=== PATIENT | male | born 1955 | race Caucasian/White ===

== ENCOUNTER 2017-02-06 13:48 | Day surgery (SDC) | payer BC ==
[~2017-02-06] VITALS: Ht 172.7 cm; Wt 105.6 kg
[2017-02-06 14:10] VITALS: BP 126/79; PULSE 65; TEMP 98.3
[2017-02-06] MEDS ORDERED: LOTREL 5/20 CAP1 CAP PO (14:51)
[2017-02-06] MEDS ORDERED: ZYLOPRIM 300MG300 MG PO (14:52)
[2017-02-06] MEDS ORDERED: HYGROTON50 MG PO (14:52)
[2017-02-06] MEDS ORDERED: ALEVE 220MG220 MG PO (14:53)
[2017-02-06 15:49] VITALS: BP 126/79; PULSE 69
[2017-02-06 16:04] VITALS: BP 105/70; PULSE 57
[2017-02-06 16:19] VITALS: BP 113/72; PULSE 61
== END 2017-02-06 16:30 | disposition home or self-care (01) ==
LOC: SDCO 13:48
DX: Z12.11 Encounter for screening for malignant neoplasm of colon (principal); K63.5 Polyp of colon; K62.1 Rectal polyp; K57.30 Diverticulosis of large intestine without perforation or abscess without bleeding; I10 Essential (primary) hypertension; M10.9 Gout, unspecified
CPT/HCPCS: OP; J2250; J3010; J7030

== ENCOUNTER 2020-02-16 14:09 | Day surgery (SDC) | payer BC ==
[~2020-02-16] VITALS: Ht 170.2 cm; Wt 102.0 kg
[2020-02-16] VITALS (7 sets, daily range): BP systolic 109–126; BP diastolic 61–96; PULSE 44–58; TEMP 98.7
[~2020-02-16 14:09] MED LIST: ALEVE 220MG220 MG PO; HYGROTON50 MG PO; LOTREL 5/20 CAP1 CAP PO; ZYLOPRIM 300MG300 MG PO
[2020-02-16] MEDS ORDERED: ASPIRIN E.C. 8181 MG PO (14:44)
[2020-02-16] MEDS ORDERED: LIPITOR20 MG PO (14:44)
[2020-02-16] MEDS ORDERED: FLOMAX 0.40.4 MG/CAP PO (14:44)
[2020-02-16] MEDS ORDERED: PROSCAR 5MG5 MG PO (14:45)
[2020-02-16] MEDS ORDERED: REVATIO20 MG PO (14:45)
--- NOTE | 2020-02-16 17:10 | NUR ---
Patient up from OR. Alert and oriented x 3. Spouse at bedside. Li to dependent drainage with clear yellow urine in bag. Post op VSS. Fluids infusing per orders. No further needs at this time.
--- NOTE | 2020-02-16 19:06 | NUR ---
Patient doing well since up from OR. Tolerating Diet. Denies further needs at [facility]. Will report off to night cleaner.
--- NOTE | 2020-02-16 19:54 | NUR ---
Patient educated on the maintenance of catheter after discharge. INT to right hand discontinued. Li catheter draining clear, yellow urine measuring 200ml. Leg bag and extra drainage bag sent with patient. All questions answered. Patient assisted to personal vehicle via wheelchair by surgical staff with family accompanying patient.
== END 2020-02-16 20:01 | disposition home or self-care (01) ==
LOC: SDCO 14:09 → SURG 17:05 → SDCO 20:01
DX: N35.812 Other bulbous urethral stricture, male (principal); I10 Essential (primary) hypertension; G47.33 Obstructive sleep apnea (adult) (pediatric); N40.1 Benign prostatic hyperplasia with lower urinary tract symptoms; R39.12 Poor urinary stream; R35.0 Frequency of micturition; R39.15 Urgency of urination; R31.0 Gross hematuria; M19.90 Unspecified osteoarthritis, unspecified site; Z79.899 Other long term (current) drug therapy; E78.00 Pure hypercholesterolemia, unspecified; M10.9 Gout, unspecified; Z87.891 Personal history of nicotine dependence
CPT/HCPCS: OP; C1769; J0690; J2704; J3010; J7120